=== PATIENT | male | born 1945 | race Caucasian/White ===

== ENCOUNTER 2018-09-22 14:16 | Outpatient (RCR) | payer BC, MEDICARE ==
[~2018-09-22 14:16] MED LIST: CELEBREX100 MG PO; COZAAR25 MG ORAL; CYCLOBENZAPRINE10 MG ORAL; CYTOMEL5 MCG ORAL; FLOMAX0.4 MG ORAL; GLUMETZA PO; NEPTAZANE50 MG PO; NORCO 10-325 T1 EACH PO; NORMODYNE100 MG ORAL; SOMA350 MG PO; SYNTHROID25 MCG ORAL; TEKTURNA300 MG PO; ULORIC40 MG PO; VICTOZA 3-0.6 MG/0.1 SQ
== END 2018-09-29 | disposition home or self-care (01) ==
LOC: WCC 14:16
DX: L97.516 Non-pressure chronic ulcer of other part of right foot with bone involvement without evidence of necrosis (principal); E08.21 Diabetes mellitus due to underlying condition with diabetic nephropathy; E11.621 Type 2 diabetes mellitus with foot ulcer; E11.9 Type 2 diabetes mellitus without complications; I10 Essential (primary) hypertension; Z85.850 Personal history of malignant neoplasm of thyroid
CPT/HCPCS: 11043

== ENCOUNTER 2018-10-06 14:08 | Outpatient (RCR) | payer BC, MEDICARE ==
--- NOTE | 2018-10-13 21:15 | Consultation ---
DATE OF CONSULTATION: 10/13/2018 INFECTIOUS DISEASE CONSULTATION CONSULTING PHYSICIAN: Lawrence Veloz M.D. REQUESTING PHYSICIAN: Tiffany Wallace, physician certified anesthesiologist assistant at the wound care clinic. REASON FOR CONSULTATION: Right foot nonhealing wound with possible underlying osteomyelitis at the right fifth metatarsal head due to methicillin-sensitive Staph aureus, Stenotrophomonas maltophilia, and Proteus mirabilis. Recommendation for antimicrobial treatment. HISTORY OF PRESENT ILLNESS: The patient is a 72-year-old male with past medical history of hypertension, diabetes, hyperlipidemia, gout, and thyroid cancer, status post total thyroidectomy in 2007, presented to the wound care clinic at [facility] with right foot nonhealing wound started in June of this year. He did some pedicure for his feet in June when it was hot and warm, and he was wearing sandals at that day. They had some dry skin removed from the same location. The patient later during the day had minor bleeding and small open wound with blood clot from the same location and then it began to expand and formed deep wound. His wound was nonhealing over the last couple of months. In August, started getting even worse, so he was seen by the wound care clinic on October 06 and a probe was able to reach deep to the joint of his fifth toe. The patient had deep culture done from the wound, which grew MSSA, Stenotrophomonas maltophilia, and Proteus mirabilis. The patient was seen recently by shaker tender outside of [facility] and he had umbilical tissue graft placed in the wound area. Today, he presented to the wound care clinic at [facility] to consider starting antibiotics treatment for his right foot wound infection and possible early osteomyelitis of the right fifth metatarsal head. The patient denied any foot pain or drainage from the wound site area. No fever or chills. No cough or shortness of breath. No nausea, vomiting, or diarrhea. No other associated symptoms. REVIEW OF SYSTEMS: A 14-point of system reviewed were all negative apart from the one I mentioned above in my H and P. PAST MEDICAL HISTORY: Significant for hypertension, diabetes, hyperlipidemia, gout, and thyroid cancer, status post thyroidectomy. PAST SURGICAL HISTORY: He had total thyroidectomy in 2007 with lymph node dissection. FAMILY HISTORY: Noncontributory. 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 Denies using any drugs, tobacco, or alcohol. ALLERGIES: He has no known drug allergy. MEDICATIONS: The patient takes allopurinol, thyroxine, statin, and blood pressure medication in addition to Victoza for his diabetes. LABORATORY AND DIAGNOSTIC DATA: Labs, nothing done recently. Microbiology, right foot wound culture grew Staph aureus, methicillin-sensitive; Stenotrophomonas maltophilia; and Proteus mirabilis. Stenotrophomonas maltophilia sensitive to Levaquin and Bactrim. Imaging, MRI of the right foot showed noninfectious reactive osteitis of the plantar aspect of the right fifth metatarsal head immediately deep to the plantar soft tissue defect and early osteomyelitis is in the differential, but deemed unlikely subcutaneous edema of the dorsum of the right forefoot. No abscesses. Differential includes fluid retention, venous stasis versus cellulitis, and acute on chronic denervation of intrinsic foot muscle. PHYSICAL EXAMINATION: VITAL SIGNS: Reviewed and stable. GENERAL: Elderly male, up in bed, awake, alert, and oriented x3, not in acute distress. HEENT: Normocephalic and atraumatic. Pupils are reactive to light equally. Moist oral mucosa. No exudate. NECK: Supple. No lymphadenopathy. Old thyroidectomy scar. CARDIOVASCULAR: Regular rate and rhythm. No murmur or gallop. LUNGS: Clear bilaterally. No wheezing or rhonchi. Normal breathing effort. ABDOMEN: Soft, obese, nontender, and nondistended. Normal bowel sounds. No hepatosplenomegaly or ascites. EXTREMITIES: No edema or cyanosis. Right foot lateral plantar wound filled with granulated tissue due to the recent graft. Bone is not exposed. The granulated tissue is filling up his wound area. Mild skin erythema surrounding it. No drainage. No foul smelling. No sign of infection apparent. ASSESSMENT AND RECOMMENDATIONS: 1. Right foot plantar wound infection with multiple organisms in diabetic patient. Recommend antibiotics treatment for minimum of two weeks. Based on his culture result and sensitivity, the patient should be on Bactrim at least for two weeks to treat his soft tissue infection. I would even extend his antibiotics treatment to four weeks to cover for possible early osteomyelitis of the right fifth metatarsal head. The patient to continue local wound care and dressing changes as per his shaker tender. 2. Early osteomyelitis of the right fifth metatarsal head. The patient will need four weeks of IV antibiotics treatment, but he refused IV treatment. In that case, I recommend oral Bactrim Double Strength twice daily for four weeks to treat early osteomyelitis. He will need weekly labs with chemistry, renal function test, and blood count test to monitor side effect of Bactrim including, but not limited to renal failure, elevated potassium, and anemia. The patient aware of the risk and benefit of starting Bactrim. He agreed to proceed and to monitor labs weekly. We will attempt to follow the patient in the wound care clinic if he returns to the clinic next week. All questions were answered in detail to the patient in the presence of the physician certified anesthesiologist assistant and the nursing staff at the wound care center at [facility]. Thank you for the consult. Infectious Disease will sign off at this point. Please feel free to call with any question or concern. Prescription was given to the patient for Bactrim. Lawrence Veloz M.D. DR: RONNA JOB#: [id number] CC: BHAVIN
== END 2018-10-29 | disposition home or self-care (01) ==
LOC: WCC 14:08
DX: E11.621 Type 2 diabetes mellitus with foot ulcer (principal); L97.516 Non-pressure chronic ulcer of other part of right foot with bone involvement without evidence of necrosis; E08.21 Diabetes mellitus due to underlying condition with diabetic nephropathy; L03.115 Cellulitis of right lower limb; M86.171 Other acute osteomyelitis, right ankle and foot; I10 Essential (primary) hypertension; Z85.850 Personal history of malignant neoplasm of thyroid
CPT/HCPCS: 11043; 87070; 87181; 87205; G0463

== ENCOUNTER 2019-03-07 10:50 | Outpatient (RCR) | payer BC, MEDICARE | END 2019-03-29 | disposition home or self-care (01) | LOC: WCC 10:50 | DX: T86.828 Other complications of skin graft (allograft) (autograft) (principal); E11.621 Type 2 diabetes mellitus with foot ulcer; L97.512 Non-pressure chronic ulcer of other part of right foot with fat layer exposed; R05 Cough; Z89.421 Acquired absence of other right toe(s); Z85.850 Personal history of malignant neoplasm of thyroid; Z95.0 Presence of cardiac pacemaker; E11.42 Type 2 diabetes mellitus with diabetic polyneuropathy; M86.671 Other chronic osteomyelitis, right ankle and foot; L97.415 Non-pressure chronic ulcer of right heel and midfoot with muscle involvement without evidence of necrosis; Z79.899 Other long term (current) drug therapy | CPT/HCPCS: 11043; 82962; G0277; G0463 ==

== ENCOUNTER 2019-03-07 11:59 | Outpatient (CLI) | payer BC, MEDICARE ==
--- NOTE | 2019-03-07 18:11 | Diagnostic Imaging Report ---
Indication: Cough Technique: One view of the chest Comparison: none Findings: Lungs and pleural spaces are clear. Heart size is normal. There is a right arm PICC in good position Impression: No acute process
== END 2019-03-07 13:59 | disposition home or self-care (01) ==
LOC: RAD 11:59
DX: R05 Cough (principal)
CPT/HCPCS: 71045

== ENCOUNTER 2019-03-30 08:45 | Outpatient (RCR) | payer BC, MEDICARE | END 2019-04-29 | disposition home or self-care (01) | LOC: WCC 08:45 | DX: T86.828 Other complications of skin graft (allograft) (autograft) (principal); L97.512 Non-pressure chronic ulcer of other part of right foot with fat layer exposed; E11.621 Type 2 diabetes mellitus with foot ulcer; Z89.421 Acquired absence of other right toe(s); I10 Essential (primary) hypertension; Z85.850 Personal history of malignant neoplasm of thyroid; Z79.899 Other long term (current) drug therapy | CPT/HCPCS: 11043; 82962; G0277; G0463 ==